=== PATIENT | female | born 1985 | race Caucasian/White ===

== ENCOUNTER 2020-04-09 12:12 | Outpatient (CLI) | payer OTHER | END 2020-04-09 23:59 | disposition home or self-care (01) | LOC: STAR 12:12 | PROVIDERS: ATTEND Physician Assistant | DX: Z20.828 Contact with and (suspected) exposure to other viral communicable diseases (principal) | CPT/HCPCS: U0003 ==

== ENCOUNTER 2020-04-12 10:15 | Day surgery (SDC) | payer MEDICAID, OTHER ==
[~2020-04-12] VITALS: Ht 180.3 cm; Wt 78.3 kg
[~2020-04-12 10:15] MED LIST: BUPIVACAINE/PF 0.25% ONE
[2020-04-12 10:57] VITALS: BP 115/75
[2020-04-12] MEDS ORDERED: LACTATED RINGERS 1,000 ML IV SCH (11:00)
[2020-04-12] MEDS ORDERED: CHLORHEXIDINE 15 ML UDC MM ONE (11:00)
[2020-04-12] MEDS ORDERED: ONDANSETRON 2MG/ML, 2ML ONE (13:10)
[2020-04-12] MEDS ORDERED: ROCURONIUM 10 MG/ML,10ML ONE (13:10)
[2020-04-12] MEDS ORDERED: PROPOFOL 10 MG/ML, 50ML ONE (13:10)
[2020-04-12] MEDS ORDERED: DEXAMETHASONE 4 MG/ML, 1ML ONE (13:10)
[2020-04-12] MEDS ORDERED: SUGAMMADEX 200 MG/2 ML IVPush ONE (13:10)
[2020-04-12] MEDS ORDERED: CEFAZOLIN 1,000 MG ONE (13:10)
[2020-04-12] MEDS ORDERED: MIDAZOLAM 1 MG/ML, 2ML ONE (13:25)
[2020-04-12] MEDS ORDERED: FENTANYL PF 100 MCG/2ML ONE ×2 (13:25→14:04)
[2020-04-12] MEDS ORDERED: HYDROmorphone 1 MG/ML, 1ML INJ IVPush PRN (13:30)
[2020-04-12] MEDS ORDERED: OXYcodone 5 MG/5 ML ORAL.SOL UDC PO PRN (13:30)
[2020-04-12] MEDS ORDERED: MEPERIDINE/PF 25MG/0.5ML IVPush PRN (13:30)
[2020-04-12] MEDS ORDERED: ONDANSETRON 2MG/ML, 2ML IVPush PRN (13:30)
[2020-04-12] MEDS ORDERED: HALOPERIDOL 5 MG/ML IV PRN (13:30)
[2020-04-12] MEDS ORDERED: LABETALOL 5MG/ML, 20ML IV PRN (13:30)
[2020-04-12] MEDS ORDERED: ALBUTEROL SULFATE 2.5 MG/3 ML NPPB PRN (13:30)
[2020-04-12] MEDS ORDERED: PROMETHAZINE 12.5 MG SUPP PR PRN (13:30)
[2020-04-12] MEDS ORDERED: METOCLOPRAMIDE 5 MG/ML, 2ML IVPush PRN (13:30)
[2020-04-12] MEDS ORDERED: hydrALAzine 20 MG/ML, 1ML IV PRN (13:30)
[2020-04-12] MEDS ORDERED: ACETAMINOPHEN 325 MG TABLET PO PRN (13:30)
[2020-04-12] MEDS ORDERED: EPHEDRINE 50 MG/ML, 1ML IVPush PRN (13:30)
[2020-04-12] MEDS ORDERED: OXYcodone 5 MG/5 ML ORAL.SOL UDC ONE (14:05)
[2020-04-12] MEDS: FENTANYL PF 100 MCG/2ML IV PRN ×2 (14:06→14:11)
== END 2020-04-12 16:15 | disposition home or self-care (01) ==
LOC: OUT 10:15 → MERGE 10:15 → OUT 16:15
PROVIDERS: ATTEND Obstetrics & Gynecology Female Pelvic Medicine and Reconstructive Surgery
DX: D27.1 Benign neoplasm of left ovary (principal); G43.909 Migraine, unspecified, not intractable, without status migrainosus; F41.1 Generalized anxiety disorder; Z98.890 Other specified postprocedural states
CPT/HCPCS: 58662; 81025; 88305; J0690; J1100; J2250; J2405; J2704; J3010; J7120